=== PATIENT | male | born 1975 | race Caucasian/White ===

== ENCOUNTER 2022-12-07 13:23 | Emergency (ER) | payer OTHER ==
[~2022-12-07] VITALS: Ht 165.1 cm; Wt 81.0 kg
[2022-12-07 13:46] VITALS: BP 120/73; PULSE 115; RESP 18; TEMP 99.9; O2SAT 98
[2022-12-07] MEDS ORDERED: BACITRACIN ZINC OINT UDPKT TOP ONE (14:30)
[2022-12-07] MEDS ORDERED: LIDOCAINE HCL/PF 1% 10 MG/ML 5ML VIAL INFIL ONE (14:30)
[2022-12-07] MEDS ORDERED: IBUP-2029 PO (16:46)
== END 2022-12-07 17:06 | disposition home or self-care (01) ==
LOC: ER 14:22
DX: S01.01XA Laceration without foreign body of scalp, initial encounter (principal); W20.8XXA Other cause of strike by thrown, projected or falling object, initial encounter; Y93.9 Activity, unspecified; Y92.89 Other specified places as the place of occurrence of the external cause; Y99.8 Other external cause status
CPT/HCPCS: 99284; 70450; J3490

== ENCOUNTER 2022-12-16 07:27 | Emergency (ER) | payer OTHER ==
[~2022-12-16] VITALS: Ht 172.7 cm; Wt 80.0 kg
[~2022-12-16 07:27] MED LIST: IBUP-2029 PO
[2022-12-16 07:33] VITALS: PULSE 98; RESP 16
[2022-12-16 07:34] VITALS: BP 120/73; TEMP 98.4; O2SAT 100
[2022-12-16] MEDS ORDERED: BACITRACIN ZINC OINT UDPKT TOP SCH (08:30)
[2022-12-16] MEDS ORDERED: BACITRACIN 15GM TUBE TOP NR (08:30)
== END 2022-12-16 08:50 | disposition home or self-care (01) ==
LOC: ER 07:27
DX: Z48.02 Encounter for removal of sutures (principal)
CPT/HCPCS: 99281